=== PATIENT | female | born 1985 | race Caucasian/White ===

== ENCOUNTER 2017-10-22 06:32 | Inpatient (IN) | payer OTHER, SELFPAY ==
[~2017-10-22 06:32] MED LIST: Sodium Chloride 0.9% 10 ML Syringe FLUSH PRN; Sodium Chloride 0.9% 2.5 ML Syringe FLUSH PRN; ceFAZolin 2 GM in Premix Bag 1 BAG IV ONE
[2017-10-22] MEDS: Lactated Ringers 1,000 ML IV SCH ×3 (06:40→23:50)
--- NOTE | 2017-10-22 07:00 | PCM.PREANE ---
Preanesthetic Assessment - Anesthesia/Transfusion/Family Hx Anesthesia History: Prior Anesthesia Without Reaction Family History of Anesthesia Reaction: No Transfusion History: No Prior Transfusion(s) Intubation History: Unknown - Review of Systems General: No Symptoms Pulmonary: No Symptoms Cardiovascular: No Symptoms Gastrointestinal: Abdominal Pain Neurological: No Symptoms Other: Reports: None - Physical Assessment O2 Sat by Pulse Oximetry: 98 Respiratory Rate: 16 Vital Signs: Last Vital Signs Temp 36.5 C 10/22/17 06:45 Pulse 84 10/22/17 06:45 Resp 16 10/22/17 06:45 BP 127/64 10/22/17 06:45 Pulse Ox 98 10/22/17 06:45 Height: 1.68 m Weight: 101.151 kg ASA Class: 2 Mental Status: Alert & Oriented x3 Airway Class: Mallampati = 2 Dentition: Reports: Normal Dentition Thyro-Mental Finger Breadths: 3 Mouth Opening Finger Breadths: 3 ROM/Head Extension: Full Lungs: Clear to Auscultation, Normal Respiratory Effort Cardiovascular: Regular Rate, Regular Rhythm - Allergies Allergies/Adverse Reactions: Allergies Allergy/AdvReac Type Severity Reaction Status Date / Time pertussis vaccine,adsorbed Allergy Seizure Verified 10/16/17 10:44 [Pertussis Vaccine,Adsorbed] venom-honey bee Allergy Anaphylactic Verified 10/16/17 10:44 [bee venom (honey bee)] Shock - Blood Blood Available: No - Anesthesia Plan Pre-Op Medication Ordered: None - Acknowledgements Anesthesia Type Planned: General Anesthesia Pt an Appropriate Candidate for the Planned Anesthesia: Yes Alternatives and Risks of Anesthesia Discussed w Pt/Guardian: Yes Pt/Guardian Understands and Agrees with Anesthesia Plan: Yes PreAnesthesia Questionnaire HEENT History: Reports: Other (See Below) Other HEENT History: wears glasses Cardiovascular History: Reports: Other (See Below) (borderline cholesterol) Respiratory History: Reports: Other (See Below) Other Respiratory History: sports induced asthma in highschool Gastrointestinal History: Reports: Cholelithiasis Genitourinary History: Reports: None GRAPHIC DESIGN INTERN History: Reports: , Spontaneous Musculoskeletal History: Reports: None Neurological History: Reports: None Psychiatric History: Reports: None Endocrine/Metabolic History: Reports: Obesity/BMI 30+ Hematologic History: Reports: None Immunologic History: Reports: None Oncologic (Cancer) History: Reports: None Dermatologic History: Reports: Other (See Below) Other Dermatologic History: folliculitis - Past Surgical History Head Surgeries/Procedures: Reports: None Female Surgical History: Reports: D&C, LEEP - SUBSTANCE USE Smoking Status *Q: Former Smoker Second Hand Smoke Exposure: No Days Per Week of Alcohol Use: 0 Recreational Drug Use History: No - HOME MEDS Home Medications: Home Meds Acetaminophen [Tylenol Extra Strength] 1 - 2 tab PO ASDIRECTED PRN 10/16/17 [ History] Clotrimazole/Betamethasone Dip [Lotrisone Cream] 1 applic TOP ASDIRECTED [History] EPINEPHrine [Epipen 2-Sascha] 1 injection SUBCUT ASDIRECTED PRN 10/16/17 [History] Ibuprofen 3 tab PO ASDIRECTED PRN 10/16/17 [History] Omeprazole 20 mg PO DAILY PRN 10/16/17 [History] - CURRENT (IN HOUSE) MEDS Current Meds: Current Medications Lactated Ringer's (Ringers, Lactated) 1,000 mls @ 125 mls/hr IV ASDIRECTED STEVEN Last Admin: 10/22/17 06:40 Dose: 125 mls/hr Sodium Chloride (Saline Flush) 10 ml FLUSH ASDIRECTED PRN PRN Reason: Keep Vein Open Sodium Chloride (Saline Flush) 2.5 ml FLUSH ASDIRECTED PRN PRN Reason: Keep Vein Open Discontinued Medications Cefazolin Sodium/Dextrose 2 gm (/ Premix) 50 mls @ 100 mls/hr IV ONETIME ONE Stop: 10/21/17 17:06
[2017-10-22] MEDS ORDERED: Scopolamine 1.5 MG Transdermal Patch TRDERM PRN (07:01)
[2017-10-22] MEDS ORDERED: Ondansetron 4 MG/2 ML SDV ONE (07:04)
[2017-10-22] MEDS ORDERED: fentaNYL 100 MCG/2 ML SDV ONE ×4 (07:04→09:29)
[2017-10-22] MEDS ORDERED: Propofol 200 MG/20 ML SDV ONE (07:04)
[2017-10-22] MEDS ORDERED: Midazolam 1 MG/ML 2 ML SDV ONE (07:04)
[2017-10-22] MEDS ORDERED: Dexamethasone 4 MG/ML 5 ML MDV ONE (07:04)
[2017-10-22] MEDS ORDERED: Succinylcholine/Normal Saline 200 MG/10 ML Syringe ONE (07:07)
[2017-10-22] MEDS ORDERED: Rocuronium 10 MG/ML 10 ML Syringe ONE (07:07)
[2017-10-22] MEDS ORDERED: Neostigmine Methylsulfate 1 MG/ML 5 ML Syringe ONE (07:08)
[2017-10-22] MEDS ORDERED: Glycopyrrolate 0.2 MG/ML SDV ONE ×2 (07:08→08:49)
[2017-10-22] MEDS ORDERED: ceFAZolin/Dextrose,Iso-Osmotic 2 GM/50 ML Duplex Bag IV ONE (07:17)
[2017-10-22] MEDS ORDERED: Bupivacaine 0.5% 30 ML SDV ONE ×2 (07:28→09:36)
[2017-10-22] MEDS ORDERED: fentaNYL 100 MCG/2 ML SDV IVPUSH PRN (07:50)
[2017-10-22] MEDS ORDERED: ePHEDrine 50 MG/ML SDV ONE (08:44)
[2017-10-22] MEDS ORDERED: Phenylephrine/Normal Saline 100 MCG/ML 10 ML Syringe ONE (08:46)
[2017-10-22] MEDS ORDERED: Sodium Chloride 0.9% 20 ML ONE (10:12)
[2017-10-22] MEDS ORDERED: HYDROmorphone 2 MG/ML SDV ONE (10:12)
[2017-10-22] MEDS ORDERED: Ondansetron 4 MG/2 ML SDV IVPUSH PRN (10:58)
[2017-10-22] MEDS ORDERED: Acetaminophen 325 MG Tab PO PRN (10:58)
[2017-10-22] MEDS ORDERED: Promethazine 25 MG/ML SDV IM PRN (10:58)
[2017-10-22] MEDS ORDERED: HYDROmorphone/Normal Saline 6 MG/30 ML PCA Vial IV PRN (11:01)
--- NOTE | 2017-10-22 11:04 | PCM.OPNOTE ---
- General Post-Op/Procedure Note Date of Surgery/Procedure: 10/22/17 Operative Procedure(s): Laparoscopic converted to open cholecystectomy Findings: Severely inflamed gallbladder full of small stones Pre Op Diagnosis: Cholelithiasis Post-Op Diagnosis: Severe cholecystitis Anesthesia Technique: General ET Tube Primary Surgeon: Penelope Dangelo Pathology: Gallbladder Fluid Replacement, Intraop: 2,100 Output, Urine Amount: 100 EBL in mLs: 300 Surgical Drain/Tube Type: Juan Drain Condition: Good
[2017-10-22] MEDS: Cyclobenzaprine 5 MG Tab PO SCH ×2 (13:36→21:06)
--- NOTE | 2017-10-22 14:24 | PCM.SURGPN ---
- General Info Date of Service: 10/22/17 Date of Surgery/Procedure: 10/22/17 POD#: 0 Functional Status: Reports: Pain Controlled, Tolerating Diet - Review of Systems General: Reports: No Symptoms Pulmonary: Reports: No Symptoms Cardiovascular: Reports: No Symptoms Gastrointestinal: Reports: Abdominal Pain (along incision and mainly with movement ) - Patient Data Vitals - Most Recent: Last Vital Signs Temp 36.6 C 10/22/17 10:56 Pulse 98 10/22/17 11:55 Resp 21 H 10/22/17 11:55 BP 118/62 10/22/17 11:55 Pulse Ox 94 L 10/22/17 11:55 Weight - Most Recent: 103.963 kg I&O - Last 24 Hours: Intake & Output 10/21/17 10/22/17 10/22/17 22:59 06:59 14:59 Intake Total 4800 Output Total 300 Balance 4500 Lab Results Last 24 Hrs: Laboratory Results - last 24 hr 10/22/17 Range/Units 07:00 Urine HCG, Qual NEGATIVE (NEGATIVE) Med Orders - Current: Current Medications Acetaminophen (Tylenol) 650 mg PO Q6H PRN PRN Reason: Pain (mild 1-3) Cyclobenzaprine HCl (Flexeril) 5 mg PO BID [facility] Last Admin: 10/22/17 13:36 Dose: 5 mg Docusate Sodium (Colace) 100 mg PO BID PRN PRN Reason: Constipation Hydromorphone HCl (Dilaudid Harvesting Supervisor 6 Mg In Ns 30 Ml) 0 mg IV ASDIRECTED PRN; Protocol PRN Reason: Abdominal Pain Last Admin: 10/22/17 12:11 Dose: 6 mg Lactated Ringer's (Ringers, Lactated) 1,000 mls @ 125 mls/hr IV ASDIRECTED STEVEN Last Admin: 10/22/17 06:40 Dose: 125 mls/hr Ondansetron HCl (Zofran) 4 mg IVPUSH Q6H PRN PRN Reason: Nausea/Vomiting Promethazine HCl (Phenergan) 25 mg IM Q6H PRN PRN Reason: Nausea Scopolamine (Transderm-Scop) 1.5 mg TRDERM Q72H PRN PRN Reason: Nausea Last Admin: 10/22/17 07:13 Dose: 1.5 mg Sodium Chloride (Saline Flush) 10 ml FLUSH ASDIRECTED PRN PRN Reason: Keep Vein Open Sodium Chloride (Saline Flush) 2.5 ml FLUSH ASDIRECTED PRN PRN Reason: Keep Vein Open Discontinued Medications Bupivacaine HCl (Marcaine 0.5%) Confirm Administered Dose 30 ml .ROUTE .STK-MED ONE Stop: 10/22/17 07:29 Bupivacaine HCl (Marcaine 0.5%) Confirm Administered Dose 120 ml .ROUTE .STK- MED ONE Stop: 10/22/17 09:37 Cefazolin Sodium/Dextrose (Ancef) Confirm Administered Dose 2 gm IV .STK-MED ONE Stop: 10/22/17 07:18 Last Admin: 10/22/17 13:37 Dose: Not Given Dexamethasone (Dexamethasone) Confirm Administered Dose 20 mg .ROUTE .STK-MED ONE Stop: 10/22/17 07:05 Ephedrine Sulfate (Ephedrine Sulfate) Confirm Administered Dose 50 mg .ROUTE .STK-MED ONE Stop: 10/22/17 08:45 Fentanyl (Sublimaze) Confirm Administered Dose 100 mcg .ROUTE .STK-MED ONE Stop: 10/22/17 07:05 Fentanyl (Sublimaze) 50 mcg IVPUSH Q5M PRN PRN Reason: Pain (moderate 4-6) Stop: 10/22/17 12:00 Last Admin: 10/22/17 11:30 Dose: 50 mcg Fentanyl (Sublimaze) Confirm Administered Dose 100 mcg .ROUTE .STK-MED ONE Stop: 10/22/17 08:23 Fentanyl (Sublimaze) Confirm Administered Dose 100 mcg .ROUTE .STK-MED ONE Stop: 10/22/17 09:30 Fentanyl (Sublimaze) Confirm Administered Dose 100 mcg .ROUTE .STK-MED ONE Stop: 10/22/17 09:30 Glycopyrrolate (Robinul) Confirm Administered Dose 0.4 mg .ROUTE .STK-MED ONE Stop: 10/22/17 07:09 Glycopyrrolate (Robinul) Confirm Administered Dose 0.2 mg .ROUTE .STK-MED ONE Stop: 10/22/17 08:50 Hydromorphone HCl (Dilaudid) Confirm Administered Dose 2 mg .ROUTE .STK-MED ONE Stop: 10/22/17 10:13 Cefazolin Sodium/Dextrose 2 gm (/ Premix) 50 mls @ 100 mls/hr IV ONETIME ONE Stop: 10/21/17 17:06 Last Admin: 10/22/17 13:37 Dose: Not Given Sodium Chloride (Normal Saline) Confirm Administered Dose 20 mls @ as directed .ROUTE .STK-MED ONE Stop: 10/22/17 10:13 Lidocaine HCl (Xylocaine-Mpf 1%) Confirm Administered Dose 5 ml .ROUTE .STK-MED ONE Stop: 10/22/17 07:05 Midazolam HCl (Versed 1 Mg/Ml) Confirm Administered Dose 2 mg .ROUTE .STK-MED ONE Stop: 10/22/17 07:05 Neostigmine Methylsulfate (Neostigmine) Confirm Administered Dose 5 mg .ROUTE .STK-MED ONE Stop: 10/22/17 07:09 Ondansetron HCl (Zofran) Confirm Administered Dose 4 mg .ROUTE .STK-MED ONE Stop: 10/22/17 07:05 Phenylephrine HCl (Phenylephrine In Ns 100 Mcg/Ml) Confirm Administered Dose 1 mg .ROUTE .STK-MED ONE Stop: 10/22/17 08:47 Propofol (Diprivan 20 Ml) Confirm Administered Dose 200 mg .ROUTE .STK-MED ONE Stop: 10/22/17 07:05 Rocuronium [place] (Zemuron) Confirm Administered Dose 100 mg .ROUTE .STK-MED ONE Stop: 10/22/17 07:08 Succinylcholine Chloride (Succinylcholine In Ns Pf) Confirm Administered Dose 200 mg .ROUTE .STK-MED ONE Stop: 10/22/17 07:08 - Exam Wound/Incisions: Healing Well, Drainage (sanguinous drainage at the william- umbilical site otherwise other dressings are dry ) General: Alert, Oriented HEENT: Pupils Equal, Pupils Reactive Neck: Supple Lungs: Normal Respiratory Effort Cardiovascular: Regular Rate GI/Abdominal Exam: Soft, Non-Tender, No Distention, No Mass, Other (Drain with small amount of sanguinous drainage ) Skin: Warm, Dry, Intact Neurological: No New Focal Deficit Psy/Mental Status: Alert, Normal Affect, Normal Mood - Problem List & Annotations (1) Cholelithiasis SNOMED Code(s): 209347023 Code(s): K80.20 - CALCULUS OF GALLBLADDER W/O CHOLECYSTITIS W/O OBSTRUCTION Status: Acute Current Visit: Yes - Problem List Review Problem List Initiated/Reviewed/Updated: Yes - My Orders Last 24 Hours: Active Orders 24 hr Category Date Time Status Patient Status [ADT] Routine ADT 10/21/17 16:37 Active Antiembolic Devices [RC] PER UNIT ROUTINE Care 10/21/17 16:39 Active Intake and Output [RC] QSHIFT Care 10/22/17 10:59 Active Notify Provider Vital Signs [RC] PRN Care 10/22/17 10:59 Active Oxygen Therapy [RC] PRN Care 10/22/17 10:58 Active RT Incentive Spirometry [RC] ASDIRECTED Care 10/22/17 10:58 Active Ready for Discharge [RC] PER UNIT ROUTINE Care 10/22/17 07:56 Inactive Up ad Isabel [RC] ASDIRECTED Care 10/22/17 10:58 Active Verify Patient Consent Obtain [RC] ASDIRECTED Care 10/21/17 16:37 Active Vital Signs [RC] PER UNIT ROUTINE Care 10/22/17 10:58 Active Clear Liquid Diet [DIET] Diet 10/22/17 Lunch Active CBC W/O DIFF,HEMOGRAM [HEME] AM Lab 10/23/17 05:11 Ordered COMPREHENSIVE METABOLIC PN,CMP [CHEM] AM Lab 10/23/17 05:11 Ordered Acetaminophen [Tylenol] Med 10/22/17 10:58 Active 650 mg PO Q6H PRN Cyclobenzaprine [Flexeril] Med 10/22/17 11:15 Active 5 mg PO BID Docusate Sodium [Colace] Med 10/23/17 10:58 Active 100 mg PO BID PRN HYDROmorphone/Normal Saline [Dilaudid SPOT CHECKER 6 MG in NS 30 Med 10/22/17 11:01 Active ML] 0 mg IV ASDIRECTED PRN Lactated Ringers [Ringers, Lactated] 1,000 ml Med 10/21/17 16:45 Active IV ASDIRECTED Ondansetron [Zofran] Med 10/22/17 10:58 Active 4 mg IVPUSH Q6H PRN Promethazine [Phenergan] Med 10/22/17 10:58 Active 25 mg IM Q6H PRN Scopolamine [Transderm-Scop] Med 10/22/17 07:01 Active 1.5 mg TRDERM Q72H PRN Sodium Chloride 0.9% [Saline Flush] Med 10/21/17 16:37 Active 10 ml FLUSH ASDIRECTED PRN Sodium Chloride 0.9% [Saline Flush] Med 10/21/17 16:37 Active 2.5 ml FLUSH ASDIRECTED PRN Abdominal Binder [OM.PC] Per Unit Routine Oth 10/22/17 10:59 Ordered Peripheral IV Insertion Adult [OM.PC] Routine Oth 10/21/17 16:37 Ordered Sequential Compression Device [OM.PC] Routine Oth 10/21/17 16:37 Ordered Resuscitation Status Routine Resus Stat 10/21/17 16:37 Ordered Medication Orders Acetaminophen (Tylenol) 650 mg PO Q6H PRN PRN Reason: Pain (mild 1-3) Cyclobenzaprine HCl (Flexeril) 5 mg PO BID [facility] Last Admin: 10/22/17 13:36 Dose: 5 mg Docusate Sodium (Colace) 100 mg PO BID PRN PRN Reason: Constipation Hydromorphone HCl (Dilaudid Harvesting Supervisor 6 Mg In Ns 30 Ml) 0 mg IV ASDIRECTED PRN; Protocol PRN Reason: Abdominal Pain Last Admin: 10/22/17 12:11 Dose: 6 mg Lactated Ringer's (Ringers, Lactated) 1,000 mls @ 125 mls/hr IV ASDIRECTED STEVEN Last Admin: 10/22/17 06:40 Dose: 125 mls/hr Ondansetron HCl (Zofran) 4 mg IVPUSH Q6H PRN PRN Reason: Nausea/Vomiting Promethazine HCl (Phenergan) 25 mg IM Q6H PRN PRN Reason: Nausea Scopolamine (Transderm-Scop) 1.5 mg TRDERM Q72H PRN PRN Reason: Nausea Last Admin: 10/22/17 07:13 Dose: 1.5 mg Sodium Chloride (Saline Flush) 10 ml FLUSH ASDIRECTED PRN PRN Reason: Keep Vein Open Sodium Chloride (Saline Flush) 2.5 ml FLUSH ASDIRECTED PRN PRN Reason: Keep Vein Open - Plan Plan (Free Text/Narrative):: -Pain: Dilaudid SPOT CHECKER. Schedule flexeril -VSS -Diet: Clear liquids tonight. Start bowel regiment tomorrow -UOP adequate. Keep barker in for tonight. -Drain output normal. Will remove tomorrow if scant. -Anticipate 2-3 day stay in hospital
--- NOTE | 2017-10-22 16:59 | OR ---
SURGEON: GEO IBARRA MD DATE OF PROCEDURE: 10/22/2017 PREOPERATIVE DIAGNOSIS: Symptomatic cholelithiasis. POSTOPERATIVE DIAGNOSIS: Severe cholecystitis with cholelithiasis PROCEDURE PERFORMED: Laparoscopic converted to open cholecystectomy. FIRE DISPATCHER: Wyatt Clarke M.D. ANESTHESIA: General endotracheal anesthesia. FLUIDS: 2100 mL crystalloid. ESTIMATED BLOOD LOSS: 300 mL. URINE OUTPUT: 50 mL. FINDINGS: Severely inflamed gallbladder that was tense and full of gallstones. Patient had short cystic duct. COMPLICATIONS: None. INDICATIONS: The patient is a 32-year-old female, who recently presented to the ER with complaint of right upper quadrant pain. All of her labs were normal and ultrasound showed cholelithiasis with no evidence of acute cholecystitis. The patient saw me in clinic and we discussed the need for a cholecystectomy. We discussed laparoscopic and open approaches. I explained to the patient that should I be unable to perform this laparoscopically, we will convert to open. We discussed the expected perioperative course for each, as well as the risks including bleeding, infection, or damage to surrounding structures. The patient verbalized understanding and wishes to proceed. PROCEDURE IN DETAIL: The patient was brought into the OR and placed on the OR table in supine position. A time-out was completed verifying the patient's name, age, date of , allergies, and procedure to be performed. General endotracheal anesthesia was induced. The left arm was tucked to the patient's side and a Manning catheter placed. The abdomen was prepped and draped in usual standard fashion. I anesthetized the infraumbilical fold with 0.5% Marcaine plain. A periumbilical incision was made using a 15 blade. Cautery was used to dissect down to the level of the fascia. The fascia was elevated with Jackie's and incised sharply with the Metzenbaum scissors. I then dissected down to the peritoneum and elevated this with two Esme clamps. I incised sharply with the Metzenbaum scissors. Entry into the abdomen was noted. 0 Vicryl sutures were placed on either side of the fascia. I then placed a 12-mm Eulalio trocar into the abdomen. The abdomen was insufflated to 13 mmHg. I then inserted a 5 mm, 30 degree scope and inspected the area underneath my initial incision. No damage to surrounding structures was noted. The patient was placed in reverse Trendelenburg position and airplaned slightly to the left. Three trocars were then placed under direct visualization in the following locations, one in the epigastric area, one in the right flank, and one two fingerbreadths below the right subcostal margin in the midclavicular line. I attempted to grasp the dome of the gallbladder with an atraumatic grasper, but was unable to do so due to the gallbladder being tense and filled with gallstones. I placed an aspiration needle through the dome of the gallbladder to try and aspirate any bile in the gallbladder in order to be able to better manipulate it. Unfortunately, only about 5 mL of bilious appearing fluid were obtained. I was able to get a small amount of purchase on the dome of the gallbladder with my right lateral flank port and elevated upwards. The gallbladder appeared acutely and chronically inflamed with a thickened gallbladder wall. The area along the infundibulum was caked in preperitoneal fat making it extremely difficult for me to identify the cystic duct and artery. I attempted to bluntly dissect away some of this fat, but was unable to do so successfully. I was having difficulty keeping a grasp on the gallbladder wall and got into bleeding. Given my inability to safely perform this laparoscopically, the decision was made to convert to open. I called in my partner, Dr. Wyatt Clarke to assist in the case. I used a 15 blade to make a right subcostal incision. Cautery was used to dissect down through the layers of the abdominal wall until I entered the abdomen. Retractors were put in place to expose the gallbladder. The gallbladder was thickened and inflamed making it difficult to see the infundibulum even when it was opened. Dr. Wyatt Clarke and I decided to proceed in a dome down fashion. Using a Metzenbaum scissors, I was able to create a window at the top of the gallbladder between the gallbladder and liver bed. Blunt dissection was used to take the gallbladder down the level of the infundibulum. The gallbladder was tightly adhered to the gallbladder fossa causing small tears along the liver bed during this dissection. Once we get down to the level of the infundibulum, the right angle was used to dissect through the inflamed and thickened tissue. This was sharply dissected using a Metzenbaum scissors and all bleeding was controlled with a clip biofuels product development manager. We were able to then identify a very short cystic duct as it inserted on the common bile duct. The cystic duct was tied off with 2-0 Vicryl sutures, and a 10 mm clip was applied across it as well. The gallbladder was then incised and passed off the field. The cystic artery was noted to be proximal to this, this was dissected free and doubly clipped and ligated. Surgicel and Endo Avitene were then placed in the gallbladder bed and pressure held for 2 minutes. After this, we reinspected the operative field and appeared hemostatic. A 19-[place] Juan drain was then placed in the gallbladder fossa and brought out through the right lateral flank port site. The drain tubing was secured with a 2-0 silk suture. Prior to placing the Avitene, we did irrigate the abdomen with 500 mL of normal saline. The abdomen was then closed. The peritoneum was closed with a running 0 Vicryl suture. The abdominal fascia was closed with interrupted 0 Ethibond sutures. A running 3-0 Vicryl suture was used to close the subcutaneous fat layer and before closing the wound, an ON-Q pump was placed overlying the fascia. The skin was then closed with skin trena. The infraumbilical incision site was closed with 0 Vicryl sutures in the fascia layer and trena in the skin. Sterile dressings were applied. The patient was taken to the PACU in stable condition. BERLIN REIS /[id number]
[2017-10-23 05:48] LABS: CHLORIDE,CL 108 mmol/L (98-110); SODIUM,NA 141 mmol/L (136-146)
[2017-10-23] MEDS ORDERED: Ketorolac 10 MG Tab PO PRN (07:04)
[2017-10-23] MEDS ORDERED: HYDROmorphone 1 MG/ML Syringe IVPUSH PRN (07:11)
--- NOTE | 2017-10-23 07:16 | PCM.SURGPN ---
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 VSS overnight. Nausea with clear liquids. UOP adequate. Drain output minimal. Afebrile. ) - Review of Systems General: Reports: No Symptoms Pulmonary: Reports: No Symptoms Cardiovascular: Reports: No Symptoms Gastrointestinal: Reports: Abdominal Pain (with movement), Nausea - Patient Data Vitals - Most Recent: Last Vital Signs Temp 36.9 C 10/22/17 18:15 Pulse 98 10/22/17 18:15 Resp 18 10/22/17 18:15 BP 120/82 10/22/17 18:15 Pulse Ox 94 L 10/22/17 18:15 Weight - Most Recent: 103.963 kg I&O - Last 24 Hours: Intake & Output 10/22/17 10/23/17 10/23/17 22:59 06:59 14:59 Intake Total 1373 1646 Output Total 285 1560 Balance 1088 86 Lab Results Last 24 Hrs: Laboratory Results - last 24 hr 10/22/17 10/23/17 10/23/17 Range/Units 07:00 04:55 04:55 WBC 11.79 H (4.0-11.0) K/uL RBC 3.87 L (4.30-5.90) M/uL Hgb 11.3 L (12.0-16.0) g/dL Hct 34.3 L (36.0-46.0) % MCV 88.6 (80.0-98.0) fL MCH 29.2 (27.0-32.0) pg MCHC 32.9 (31.0-37.0) g/dL RDW Std Deviation 47.3 (28.0-62.0) fl RDW Coeff of Rusty 15 (11.0-15.0) % Plt Count 199 (150-400) K/uL MPV 9.90 (7.40-12.00) fL Nucleated RBC % 0.0 /100WBC Nucleated RBCs # 0 K/uL Sodium 141 (136-146) mmol/L Potassium 4.6 (3.5-5.1) mmol/L Chloride 108 (98-110) mmol/L Carbon Dioxide 25 (21-31) mmol/L BUN 7 (6.0-23.0) mg/dL Creatinine 0.6 (0.6-1.5) mg/dL Est Cr Clr Drug Dosing 126.01 mL/min Estimated GFR (MDRD) > 60.0 ml/min Glucose 100 (60-110) mg/dL Calcium 9.1 (8.8-10.8) mg/dL Total Bilirubin 0.5 (0.1-1.5) mg/dL AST 57 H (5-40) IU/L ALT 64 H (8-54) IU/L Alkaline Phosphatase 53 (40-150) Total Protein 5.9 L (6.0-8.0) g/dL Albumin 3.7 (3.5-5.0) g/dL Globulin 2.2 (2.0-3.5) g/dL Albumin/Globulin Ratio 1.7 (1.3-2.8) Urine HCG, Qual NEGATIVE (NEGATIVE) Med Orders - Current: Current Medications Acetaminophen (Tylenol) 650 mg PO Q6H PRN PRN Reason: Pain (mild 1-3) Cyclobenzaprine HCl (Flexeril) 5 mg PO BID [facility] Last Admin: 10/22/17 21:06 Dose: 5 mg Docusate Sodium (Colace) 100 mg PO BID PRN PRN Reason: Constipation Hydromorphone HCl (Dilaudid) 0.5 mg IVPUSH Q1H PRN PRN Reason: Abdominal Pain Lactated Ringer's (Ringers, Lactated) 1,000 mls @ 125 mls/hr IV ASDIRECTED [facility] Last Admin: 10/22/17 23:50 Dose: 125 mls/hr Ketorolac Tromethamine (Toradol) 10 mg PO Q6H PRN PRN Reason: Abdominal Pain Stop: 10/28/17 07:05 Ondansetron HCl (Zofran) 4 mg IVPUSH Q6H PRN PRN Reason: Nausea/Vomiting Last Admin: 10/22/17 17:11 Dose: 4 mg Oxycodone/Acetaminophen (Percocet 325-5 Mg) 2 tab PO Q4H PRN PRN Reason: Abdominal Pain Promethazine HCl (Phenergan) 25 mg IM Q6H PRN PRN Reason: Nausea Scopolamine (Transderm-Scop) 1.5 mg TRDERM Q72H PRN PRN Reason: Nausea Last Admin: 10/22/17 07:13 Dose: 1.5 mg Sodium Chloride (Saline Flush) 10 ml FLUSH ASDIRECTED PRN PRN Reason: Keep Vein Open Sodium Chloride (Saline Flush) 2.5 ml FLUSH ASDIRECTED PRN PRN Reason: Keep Vein Open Discontinued Medications Bupivacaine HCl (Marcaine 0.5%) Confirm Administered Dose 30 ml .ROUTE .STK-MED ONE Stop: 10/22/17 07:29 Bupivacaine HCl (Marcaine 0.5%) Confirm Administered Dose 120 ml .ROUTE .STK- MED ONE Stop: 10/22/17 09:37 Cefazolin Sodium/Dextrose (Ancef) Confirm Administered Dose 2 gm IV .STK-MED ONE Stop: 10/22/17 07:18 Last Admin: 10/22/17 13:37 Dose: Not Given Dexamethasone (Dexamethasone) Confirm Administered Dose 20 mg .ROUTE .STK-MED ONE Stop: 10/22/17 07:05 Ephedrine Sulfate (Ephedrine Sulfate) Confirm Administered Dose 50 mg .ROUTE .STK-MED ONE Stop: 10/22/17 08:45 Fentanyl (Sublimaze) Confirm Administered Dose 100 mcg .ROUTE .STK-MED ONE Stop: 10/22/17 07:05 Fentanyl (Sublimaze) 50 mcg IVPUSH Q5M PRN PRN Reason: Pain (moderate 4-6) Stop: 10/22/17 12:00 Last Admin: 10/22/17 11:30 Dose: 50 mcg Fentanyl (Sublimaze) Confirm Administered Dose 100 mcg .ROUTE .STK-MED ONE Stop: 10/22/17 08:23 Fentanyl (Sublimaze) Confirm Administered Dose 100 mcg .ROUTE .STK-MED ONE Stop: 10/22/17 09:30 Fentanyl (Sublimaze) Confirm Administered Dose 100 mcg .ROUTE .STK-MED ONE Stop: 10/22/17 09:30 Glycopyrrolate (Robinul) Confirm Administered Dose 0.4 mg .ROUTE .STK-MED ONE Stop: 10/22/17 07:09 Glycopyrrolate (Robinul) Confirm Administered Dose 0.2 mg .ROUTE .STK-MED ONE Stop: 10/22/17 08:50 Hydromorphone HCl (Dilaudid) Confirm Administered Dose 2 mg .ROUTE .STK-MED ONE Stop: 10/22/17 10:13 Hydromorphone HCl (Dilaudid Tree Surgeon Helper 6 Mg In Ns 30 Ml) 0 mg IV ASDIRECTED PRN; Protocol PRN Reason: Abdominal Pain Last Admin: 10/22/17 12:11 Dose: 6 mg Cefazolin Sodium/Dextrose 2 gm (/ Premix) 50 mls @ 100 mls/hr IV ONETIME ONE Stop: 10/21/17 17:06 Last Admin: 10/22/17 13:37 Dose: Not Given Sodium Chloride (Normal Saline) Confirm Administered Dose 20 mls @ as directed .ROUTE .STK-MED ONE Stop: 10/22/17 10:13 Lidocaine HCl (Xylocaine-Mpf 1%) Confirm Administered Dose 5 ml .ROUTE .STK-MED ONE Stop: 10/22/17 07:05 Midazolam HCl (Versed 1 Mg/Ml) Confirm Administered Dose 2 mg .ROUTE .STK-MED ONE Stop: 10/22/17 07:05 Neostigmine Methylsulfate (Neostigmine) Confirm Administered Dose 5 mg .ROUTE .STK-MED ONE Stop: 10/22/17 07:09 Ondansetron HCl (Zofran) Confirm Administered Dose 4 mg .ROUTE .STK-MED ONE Stop: 10/22/17 07:05 Phenylephrine HCl (Phenylephrine In Ns 100 Mcg/Ml) Confirm Administered Dose 1 mg .ROUTE .STK-MED ONE Stop: 10/22/17 08:47 Propofol (Diprivan 20 Ml) Confirm Administered Dose 200 mg .ROUTE .STK-MED ONE Stop: 10/22/17 07:05 Rocuronium [place] (Zemuron) Confirm Administered Dose 100 mg .ROUTE .STK-MED ONE Stop: 10/22/17 07:08 Succinylcholine Chloride (Succinylcholine In Ns Pf) Confirm Administered Dose 200 mg .ROUTE .STK-MED ONE Stop: 10/22/17 07:08 - Exam Wound/Incisions: Healing Well, Dressing Dry and Intact (over open incision), Drainage (over infraumbilical incision) General: Alert, Oriented Lungs: Normal Respiratory Effort Cardiovascular: Regular Rhythm GI/Abdominal Exam: Soft, Non-Tender, No Distention, No Mass - Problem List & Annotations (1) Cholelithiasis SNOMED Code(s): 046064394 Code(s): K80.20 - CALCULUS OF GALLBLADDER W/O CHOLECYSTITIS W/O OBSTRUCTION Status: Acute Current Visit: Yes - Problem List Review Problem List Initiated/Reviewed/Updated: Yes - My Orders Last 24 Hours: Active Orders 24 hr Category Date Time Status Notify Provider Vital Signs [RC] PRN Care 10/22/17 10:59 Active Oxygen Therapy [RC] PRN Care 10/22/17 10:58 Active RT Incentive Spirometry [RC] ASDIRECTED Care 10/22/17 10:58 Active Ready for Discharge [RC] PER UNIT ROUTINE Care 10/22/17 07:56 Inactive Remove Barker Catheter [Urinary Catheter Removal] [RC] Care 10/23/17 07:02 Ordered Per Unit Routine Up ad Isabel [RC] ASDIRECTED Care 10/22/17 10:58 Active Vital Signs [RC] PER UNIT ROUTINE Care 10/22/17 10:58 Active Regular Diet [DIET] Diet 10/23/17 Lunch Ordered Acetaminophen [Tylenol] Med 10/22/17 10:58 Active 650 mg PO Q6H PRN Acetaminophen/oxyCODONE [Percocet 325-5 MG] Med 10/23/17 07:02 Ordered 2 tab PO Q4H PRN Cyclobenzaprine [Flexeril] Med 10/22/17 11:15 Active 5 mg PO BID Docusate Sodium [Colace] Med 10/23/17 10:58 Active 100 mg PO BID PRN HYDROmorphone [Dilaudid] Med 10/23/17 07:11 Ordered 0.5 mg IVPUSH Q1H PRN Ketorolac [Toradol] Med 10/23/17 07:04 Ordered 10 mg PO Q6H PRN Ondansetron [Zofran] Med 10/22/17 10:58 Active 4 mg IVPUSH Q6H PRN Promethazine [Phenergan] Med 10/22/17 10:58 Active 25 mg IM Q6H PRN Scopolamine [Transderm-Scop] Med 10/22/17 07:01 Active 1.5 mg TRDERM Q72H PRN Abdominal Binder [OM.PC] Per Unit Routine Oth 10/22/17 10:59 Ordered Medication Orders Acetaminophen (Tylenol) 650 mg PO Q6H PRN PRN Reason: Pain (mild 1-3) Cyclobenzaprine HCl (Flexeril) 5 mg PO BID [facility] Last Admin: 10/22/17 21:06 Dose: 5 mg Admin: 10/22/17 13:36 Dose: 5 mg Docusate Sodium (Colace) 100 mg PO BID PRN PRN Reason: Constipation Hydromorphone HCl (Dilaudid) 0.5 mg IVPUSH Q1H PRN PRN Reason: Abdominal Pain Lactated Ringer's (Ringers, Lactated) 1,000 mls @ 125 mls/hr IV ASDIRECTED [facility] Last Admin: 10/22/17 23:50 Dose: 125 mls/hr Infusion: 10/22/17 23:50 Dose: 125 mls/hr Admin: 10/22/17 15:52 Dose: 125 mls/hr Infusion: 10/22/17 14:40 Dose: 125 mls/hr Admin: 10/22/17 06:40 Dose: 125 mls/hr Ketorolac Tromethamine (Toradol) 10 mg PO Q6H PRN PRN Reason: Abdominal Pain Stop: 10/28/17 07:05 Ondansetron HCl (Zofran) 4 mg IVPUSH Q6H PRN PRN Reason: Nausea/Vomiting Last Admin: 10/22/17 17:11 Dose: 4 mg Oxycodone/Acetaminophen (Percocet 325-5 Mg) 2 tab PO Q4H PRN PRN Reason: Abdominal Pain Promethazine HCl (Phenergan) 25 mg IM Q6H PRN PRN Reason: Nausea Scopolamine (Transderm-Scop) 1.5 mg TRDERM Q72H PRN PRN Reason: Nausea Last Admin: 10/22/17 07:13 Dose: 1.5 mg Sodium Chloride (Saline Flush) 10 ml FLUSH ASDIRECTED PRN PRN Reason: Keep Vein Open Sodium Chloride (Saline Flush) 2.5 ml FLUSH ASDIRECTED PRN PRN Reason: Keep Vein Open - Plan Plan (Free Text/Narrative):: 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 IV dilaudid PRN. PRN toradol and percocet. Scheduled flexeril Diet: Advance to regular. Explained that patient should eat small frequent meals Nausea: PRN zofran, phenergan, scopalamine patch Remove barker catheter. D/C IVF Bilirubin normal. Drain output 70ml. May remove by tomorrow if output remains low. Encourage OOB activity
--- NOTE | 2017-10-23 07:38 | PCM48HPAN ---
Post Anesthesia Note - EVALUATION WITHIN 48HRS OF ANESTHETIC Vital Signs in Normal Range: Yes Patient Participated in Evaluation: Yes Respiratory Function Stable: Yes Airway Patent: Yes Cardiovascular Function Stable: Yes Hydration Status Stable: Yes Pain Control Satisfactory: Yes Nausea and Vomiting Control Satisfactory: Yes Mental Status Recovered: Yes Resp Rate: 18
[2017-10-23] MEDS: Acetaminophen/oxyCODONE 325-5 MG Tab PO PRN ×4 (08:09→21:02)
[2017-10-23] MEDS: Cyclobenzaprine 5 MG Tab PO SCH ×2 (09:49→21:03)
[2017-10-23] MEDS ORDERED: Docusate Sodium 100 MG Cap PO PRN (10:58)
[2017-10-23] MEDS ORDERED: Acetaminophen/oxyCODONE 325-5 MG Tab PO ONE (19:41)
[2017-10-23] MEDS: Polyethylene Glycol 3350 Powder 17 GM Packet PO SCH (21:49)
[2017-10-24] MEDS: Acetaminophen/oxyCODONE 325-5 MG Tab PO PRN ×2 (06:14→13:30)
[2017-10-24] MEDS: Polyethylene Glycol 3350 Powder 17 GM Packet PO SCH (08:32)
[2017-10-24] MEDS: Cyclobenzaprine 5 MG Tab PO SCH (08:32)
--- NOTE | 2017-10-24 10:08 | PCM.SURGPN ---
- General Info Functional Status: Reports: Pain Controlled, Tolerating Diet, Ambulating, Urinating, Incentive Spirometry, Other (Not passing gas yet. Feels mildly bloated. ) - Review of Systems General: Reports: No Symptoms Pulmonary: Reports: No Symptoms Cardiovascular: Reports: No Symptoms Gastrointestinal: Reports: Constipation. Denies: Abdominal Pain, Decreased Appetite, Flatus, Nausea, Vomiting - Patient Data Vitals - Most Recent: Last Vital Signs Temp 37.2 C 10/24/17 04:00 Pulse 88 10/24/17 04:00 Resp 17 10/24/17 04:00 BP 112/63 10/24/17 04:00 Pulse Ox 95 10/24/17 04:00 Weight - Most Recent: 103.963 kg I&O - Last 24 Hours: Intake & Output 10/23/17 10/24/17 10/24/17 22:59 06:59 14:59 Intake Total 1420 1390 Output Total 3350 2900 Balance -1930 -1510 Med Orders - Current: Current Medications Acetaminophen (Tylenol) 650 mg PO Q6H PRN PRN Reason: Pain (mild 1-3) Cyclobenzaprine HCl (Flexeril) 5 mg PO BID [facility] Last Admin: 10/24/17 08:32 Dose: 5 mg Docusate Sodium (Colace) 100 mg PO BID PRN PRN Reason: Constipation Last Admin: 10/23/17 09:53 Dose: 100 mg Hydromorphone HCl (Dilaudid) 0.5 mg IVPUSH Q1H PRN PRN Reason: Abdominal Pain Ketorolac Tromethamine (Toradol) 10 mg PO Q6H PRN PRN Reason: Abdominal Pain Stop: 10/28/17 07:05 Ondansetron HCl (Zofran) 4 mg IVPUSH Q6H PRN PRN Reason: Nausea/Vomiting Last Admin: 10/22/17 17:11 Dose: 4 mg Oxycodone/Acetaminophen (Percocet 325-5 Mg) 2 tab PO Q4H PRN PRN Reason: Abdominal Pain Last Admin: 10/24/17 06:14 Dose: 2 tab Polyethylene Glycol (Miralax) 17 gm PO DAILY [facility] Last Admin: 10/24/17 08:32 Dose: 17 gm Promethazine HCl (Phenergan) 25 mg IM Q6H PRN PRN Reason: Nausea Scopolamine (Transderm-Scop) 1.5 mg TRDERM Q72H PRN PRN Reason: Nausea Last Admin: 10/22/17 07:13 Dose: 1.5 mg Sodium Chloride (Saline Flush) 10 ml FLUSH ASDIRECTED PRN PRN Reason: Keep Vein Open Sodium Chloride (Saline Flush) 2.5 ml FLUSH ASDIRECTED PRN PRN Reason: Keep Vein Open Discontinued Medications Bupivacaine HCl (Marcaine 0.5%) Confirm Administered Dose 30 ml .ROUTE .STK-MED ONE Stop: 10/22/17 07:29 Bupivacaine HCl (Marcaine 0.5%) Confirm Administered Dose 120 ml .ROUTE .STK- MED ONE Stop: 10/22/17 09:37 Cefazolin Sodium/Dextrose (Ancef) Confirm Administered Dose 2 gm IV .STK-MED ONE Stop: 10/22/17 07:18 Last Admin: 10/22/17 13:37 Dose: Not Given Dexamethasone (Dexamethasone) Confirm Administered Dose 20 mg .ROUTE .STK-MED ONE Stop: 10/22/17 07:05 Ephedrine Sulfate (Ephedrine Sulfate) Confirm Administered Dose 50 mg .ROUTE .STK-MED ONE Stop: 10/22/17 08:45 Fentanyl (Sublimaze) Confirm Administered Dose 100 mcg .ROUTE .STK-MED ONE Stop: 10/22/17 07:05 Fentanyl (Sublimaze) 50 mcg IVPUSH Q5M PRN PRN Reason: Pain (moderate 4-6) Stop: 10/22/17 12:00 Last Admin: 10/22/17 11:30 Dose: 50 mcg Fentanyl (Sublimaze) Confirm Administered Dose 100 mcg .ROUTE .STK-MED ONE Stop: 10/22/17 08:23 Fentanyl (Sublimaze) Confirm Administered Dose 100 mcg .ROUTE .STK-MED ONE Stop: 10/22/17 09:30 Fentanyl (Sublimaze) Confirm Administered Dose 100 mcg .ROUTE .STK-MED ONE Stop: 10/22/17 09:30 Glycopyrrolate (Robinul) Confirm Administered Dose 0.4 mg .ROUTE .STK-MED ONE Stop: 10/22/17 07:09 Glycopyrrolate (Robinul) Confirm Administered Dose 0.2 mg .ROUTE .STK-MED ONE Stop: 10/22/17 08:50 Hydromorphone HCl (Dilaudid) Confirm Administered Dose 2 mg .ROUTE .STK-MED ONE Stop: 10/22/17 10:13 Hydromorphone HCl (Dilaudid Plant Manager 6 Mg In Ns 30 Ml) 0 mg IV ASDIRECTED PRN; Protocol PRN Reason: Abdominal Pain Last Admin: 10/22/17 12:11 Dose: 6 mg Cefazolin Sodium/Dextrose 2 gm (/ Premix) 50 mls @ 100 mls/hr IV ONETIME ONE Stop: 10/21/17 17:06 Last Admin: 10/22/17 13:37 Dose: Not Given Lactated Ringer's (Ringers, Lactated) 1,000 mls @ 125 mls/hr IV ASDIRECTED [facility] Last Admin: 10/22/17 23:50 Dose: 125 mls/hr Sodium Chloride (Normal Saline) Confirm Administered Dose 20 mls @ as directed .ROUTE .STK-MED ONE Stop: 10/22/17 10:13 Lidocaine HCl (Xylocaine-Mpf 1%) Confirm Administered Dose 5 ml .ROUTE .STK-MED ONE Stop: 10/22/17 07:05 Midazolam HCl (Versed 1 Mg/Ml) Confirm Administered Dose 2 mg .ROUTE .STK-MED ONE Stop: 10/22/17 07:05 Neostigmine Methylsulfate (Neostigmine) Confirm Administered Dose 5 mg .ROUTE .STK-MED ONE Stop: 10/22/17 07:09 Ondansetron HCl (Zofran) Confirm Administered Dose 4 mg .ROUTE .STK-MED ONE Stop: 10/22/17 07:05 Phenylephrine HCl (Phenylephrine In Ns 100 Mcg/Ml) Confirm Administered Dose 1 mg .ROUTE .STK-MED ONE Stop: 10/22/17 08:47 Propofol (Diprivan 20 Ml) Confirm Administered Dose 200 mg .ROUTE .STK-MED ONE Stop: 10/22/17 07:05 Rocuronium [place] (Zemuron) Confirm Administered Dose 100 mg .ROUTE .STK-MED ONE Stop: 10/22/17 07:08 Succinylcholine Chloride (Succinylcholine In Ns Pf) Confirm Administered Dose 200 mg .ROUTE .STK-MED ONE Stop: 10/22/17 07:08 - Exam Wound/Incisions: Healing Well, Other (Dressings removed and wounds all appear healthy with no evidence of breakdown or infection ) General: Alert, Oriented Lungs: Normal Respiratory Effort Cardiovascular: Regular Rate GI/Abdominal Exam: Soft, Non-Tender, No Distention, No Mass - Problem List & Annotations (1) Cholelithiasis SNOMED Code(s): 889568199 Code(s): K80.20 - CALCULUS OF GALLBLADDER W/O CHOLECYSTITIS W/O OBSTRUCTION Status: Acute Current Visit: Yes - Problem List Review Problem List Initiated/Reviewed/Updated: Yes - My Orders Last 24 Hours: Active Orders 24 hr Category Date Time Status Communication Order [RC] DAILY Care 10/24/17 10:01 Ordered May Shower [RC] ASDIRECTED Care 10/24/17 10:03 Ordered Regular Diet [DIET] Diet 10/23/17 Lunch Active Docusate Sodium [Colace] Med 10/23/17 10:58 Active 100 mg PO BID PRN Polyethylene Glycol 3350 [MiraLAX] Med 10/23/17 21:30 Active 17 gm PO DAILY Medication Orders Acetaminophen (Tylenol) 650 mg PO Q6H PRN PRN Reason: Pain (mild 1-3) Cyclobenzaprine HCl (Flexeril) 5 mg PO BID [facility] Last Admin: 10/24/17 08:32 Dose: 5 mg Admin: 10/23/17 21:03 Dose: 5 mg Admin: 10/23/17 09:49 Dose: 5 mg Admin: 10/22/17 21:06 Dose: 5 mg Admin: 10/22/17 13:36 Dose: 5 mg Docusate Sodium (Colace) 100 mg PO BID PRN PRN Reason: Constipation Last Admin: 10/23/17 09:53 Dose: 100 mg Hydromorphone HCl (Dilaudid) 0.5 mg IVPUSH Q1H PRN PRN Reason: Abdominal Pain Ketorolac Tromethamine (Toradol) 10 mg PO Q6H PRN PRN Reason: Abdominal Pain Stop: 10/28/17 07:05 Ondansetron HCl (Zofran) 4 mg IVPUSH Q6H PRN PRN Reason: Nausea/Vomiting Last Admin: 10/22/17 17:11 Dose: 4 mg Oxycodone/Acetaminophen (Percocet 325-5 Mg) 2 tab PO Q4H PRN PRN Reason: Abdominal Pain Last Admin: 10/24/17 06:14 Dose: 2 tab Admin: 10/23/17 21:02 Dose: 2 tab Admin: 10/23/17 16:33 Dose: 2 tab Admin: 10/23/17 12:05 Dose: 2 tab Admin: 10/23/17 08:09 Dose: 2 tab Polyethylene Glycol (Miralax) 17 gm PO DAILY [facility] Last Admin: 10/24/17 08:32 Dose: 17 gm Admin: 10/23/17 21:49 Dose: 17 gm Promethazine HCl (Phenergan) 25 mg IM Q6H PRN PRN Reason: Nausea Scopolamine (Transderm-Scop) 1.5 mg TRDERM Q72H PRN PRN Reason: Nausea Last Admin: 10/22/17 07:13 Dose: 1.5 mg Sodium Chloride (Saline Flush) 10 ml FLUSH ASDIRECTED PRN PRN Reason: Keep Vein Open Sodium Chloride (Saline Flush) 2.5 ml FLUSH ASDIRECTED PRN PRN Reason: Keep Vein Open - Plan Plan (Free Text/Narrative):: Patient is tolerating a diet but has yet to pass gas. She feels mildly bloated. Encouraged her to keep walking as much as possible. Patient is taking miralax and dulcolax. Will hold off further bowel meds at this time. She can shower now that the bandages are removed. She is only using po pain medications. Once she is passing gas or has a BM she can d/c home. If none by tomorrow will be more aggressive with bowel regiment.
[2017-10-24] MEDS ORDERED: Sennosides 8.6 MG Tab PO SCH (10:15)
[2017-10-24 17:54] VITALS: BP 123/77
[2017-10-24] MEDS ORDERED: Acetaminophen/oxyCODONE 325-5 MG Tab PO ONE ×2 (19:40→20:14)
[2017-10-24] MEDS ORDERED: Acetaminophen/oxyCODONE 325-10 MG Tab PO ONE (20:06)
[2017-10-24] MEDS ORDERED: Polyethylene Glycol 3350 Powder 17 GM Packet PO SCH (21:00)
--- NOTE | 2017-10-26 08:15 | PCM.DCSUM1 ---
Discharge Summary - Hospital Course Free Text/Narrative:: Patient is a 32 year old female who underwent an elective cholecystectomy for symptomatic cholelithiasis. Upon entering the abdomen the patient was found to have acute on chronic cholecystitis with a short cystic duct. She was converted from laparoscopic to open. She was admited to the floor post-operatively for monitoring and pain control. Her labs the next day were normal. She was converted from IV to oral pain medications with good control of her discomfort. She was able to start ambulating on POD #2 and by POD#3 was up moving without assistance. She started passing gas on POD 33. She was toelrating a regular diet with no nausea. She was cleared to discharge home. - Discharge Data Discharge Date: 10/24/17 Discharge Disposition: Home, Self-Care 01 Condition: Good - Discharge Diagnosis/Problem(s) (1) Cholelithiasis SNOMED Code(s): 903801009 ICD Code: K80.20 - CALCULUS OF GALLBLADDER W/O CHOLECYSTITIS W/O OBSTRUCTION Status: Acute - Patient Summary/Data Operative Procedure(s) Performed: Laparoscopic converted to open cholecystectomy - Patient Instructions Diet: Regular Diet as Tolerated Activity: No Lifting Over 20 Pounds, Rest and Relax Today Driving: Do Not Drive Showering/Bathing: No Tub Bathing/Swimming Wound/Incision Care: Keep Operative Site/Wound Site Clean and Dry Notify Provider of: Fever, Increased Pain, Swelling and Redness, Drainage, Nausea and/or Vomiting - Discharge Plan Prescriptions/Med Rec: Cyclobenzaprine [Flexeril] 5 mg PO TID PRN #30 tab PRN Reason: Muscle Spasm Docusate Sodium [Dulcolax Stool Softener] 100 mg PO BID #14 capsule Polyethylene Glycol 3350 [MiraLAX] 17 gm PO DAILY #14 packet Home Medications: Home Meds Clotrimazole/Betamethasone Dip [Lotrisone Cream] 1 applic TOP ASDIRECTED [History] EPINEPHrine [Epipen 2-Sascha] 1 injection SUBCUT ASDIRECTED PRN 10/16/17 [History] Ibuprofen 3 tab PO ASDIRECTED PRN 10/16/17 [History] Omeprazole 20 mg PO DAILY PRN 10/16/17 [History] Cyclobenzaprine [Flexeril] 5 mg PO TID PRN #30 tab 10/24/17 [Rx] Docusate Sodium [Dulcolax Stool Softener] 100 mg PO BID #14 capsule 10/24/17 [Rx ] Polyethylene Glycol 3350 [MiraLAX] 17 gm PO DAILY #14 packet 10/24/17 [Rx] Patient Handouts: Cyclobenzaprine tablets, Open Cholecystectomy, Care After, Acetaminophen; Oxycodone tablets, Docusate capsules, Polyethylene Glycol powder Referrals: Penelope Dangelo MD [Physician] - 11/02/17 3:30 pm - General Info Functional Status: Reports: Pain Controlled, Tolerating Diet, Ambulating, Urinating - Review of Systems General: Reports: No Symptoms Pulmonary: Reports: No Symptoms Cardiovascular: Reports: No Symptoms Gastrointestinal: Reports: No Symptoms - Patient Data Vitals - Most Recent: Last Vital Signs Temp 36.1 C 10/24/17 16:00 Pulse 85 10/24/17 16:00 Resp 16 10/24/17 16:00 BP 123/77 10/24/17 16:00 Pulse Ox 97 10/24/17 16:00 Weight - Most Recent: 103.963 kg Med Orders - Current: Current Medications Discontinued Medications Acetaminophen (Tylenol) 650 mg PO Q6H PRN PRN Reason: Pain (mild 1-3) Bupivacaine HCl (Marcaine 0.5%) Confirm Administered Dose 30 ml .ROUTE .STK-MED ONE Stop: 10/22/17 07:29 Bupivacaine HCl (Marcaine 0.5%) Confirm Administered Dose 120 ml .ROUTE .STK- MED ONE Stop: 10/22/17 09:37 Cefazolin Sodium/Dextrose (Ancef) Confirm Administered Dose 2 gm IV .STK-MED ONE Stop: 10/22/17 07:18 Last Admin: 10/22/17 13:37 Dose: Not Given Cyclobenzaprine HCl (Flexeril) 5 mg PO BID STEVEN Last Admin: 10/24/17 08:32 Dose: 5 mg Dexamethasone (Dexamethasone) Confirm Administered Dose 20 mg .ROUTE .STK-MED ONE Stop: 10/22/17 07:05 Docusate Sodium (Colace) 100 mg PO BID PRN PRN Reason: Constipation Last Admin: 10/23/17 09:53 Dose: 100 mg Ephedrine Sulfate (Ephedrine Sulfate) Confirm Administered Dose 50 mg .ROUTE .STK-MED ONE Stop: 10/22/17 08:45 Fentanyl (Sublimaze) Confirm Administered Dose 100 mcg .ROUTE .STK-MED ONE Stop: 10/22/17 07:05 Fentanyl (Sublimaze) 50 mcg IVPUSH Q5M PRN PRN Reason: Pain (moderate 4-6) Stop: 10/22/17 12:00 Last Admin: 10/22/17 11:30 Dose: 50 mcg Fentanyl (Sublimaze) Confirm Administered Dose 100 mcg .ROUTE .STK-MED ONE Stop: 10/22/17 08:23 Fentanyl (Sublimaze) Confirm Administered Dose 100 mcg .ROUTE .STK-MED ONE Stop: 10/22/17 09:30 Fentanyl (Sublimaze) Confirm Administered Dose 100 mcg .ROUTE .STK-MED ONE Stop: 10/22/17 09:30 Glycopyrrolate (Robinul) Confirm Administered Dose 0.4 mg .ROUTE .STK-MED ONE Stop: 10/22/17 07:09 Glycopyrrolate (Robinul) Confirm Administered Dose 0.2 mg .ROUTE .STK-MED ONE Stop: 10/22/17 08:50 Hydromorphone HCl (Dilaudid) Confirm Administered Dose 2 mg .ROUTE .STK-MED ONE Stop: 10/22/17 10:13 Hydromorphone HCl (Dilaudid Stretcher And Drier 6 Mg In Ns 30 Ml) 0 mg IV ASDIRECTED PRN; Protocol PRN Reason: Abdominal Pain Last Admin: 10/22/17 12:11 Dose: 6 mg Hydromorphone HCl (Dilaudid) 0.5 mg IVPUSH Q1H PRN PRN Reason: Abdominal Pain Cefazolin Sodium/Dextrose 2 gm (/ Premix) 50 mls @ 100 mls/hr IV ONETIME ONE Stop: 10/21/17 17:06 Last Admin: 10/22/17 13:37 Dose: Not Given Lactated Ringer's (Ringers, Lactated) 1,000 mls @ 125 mls/hr IV ASDIRECTED STEVEN Last Admin: 10/22/17 23:50 Dose: 125 mls/hr Sodium Chloride (Normal Saline) Confirm Administered Dose 20 mls @ as directed .ROUTE .STK-MED ONE Stop: 10/22/17 10:13 Ketorolac Tromethamine (Toradol) 10 mg PO Q6H PRN PRN Reason: Abdominal Pain Stop: 10/28/17 07:05 Last Admin: 10/24/17 10:05 Dose: 10 mg Lidocaine HCl (Xylocaine-Mpf 1%) Confirm Administered Dose 5 ml .ROUTE .STK-MED ONE Stop: 10/22/17 07:05 Midazolam HCl (Versed 1 Mg/Ml) Confirm Administered Dose 2 mg .ROUTE .STK-MED ONE Stop: 10/22/17 07:05 Neostigmine Methylsulfate (Neostigmine) Confirm Administered Dose 5 mg .ROUTE .STK-MED ONE Stop: 10/22/17 07:09 Ondansetron HCl (Zofran) Confirm Administered Dose 4 mg .ROUTE .STK-MED ONE Stop: 10/22/17 07:05 Ondansetron HCl (Zofran) 4 mg IVPUSH Q6H PRN PRN Reason: Nausea/Vomiting Last Admin: 10/22/17 17:11 Dose: 4 mg Oxycodone/Acetaminophen (Percocet 325-5 Mg) 2 tab PO Q4H PRN PRN Reason: Abdominal Pain Last Admin: 10/24/17 13:30 Dose: 2 tab Oxycodone/Acetaminophen (Percocet 325-5 Mg) 1 tab PO ONETIME ONE Stop: 10/24/17 19:41 Last Admin: 10/24/17 20:41 Dose: Not Given Oxycodone/Acetaminophen (Percocet 325-5 Mg) 4 tab PO ONETIME ONE Stop: 10/23/17 19:42 Last Admin: 10/24/17 20:10 Dose: Not Given Oxycodone/Acetaminophen (Percocet 325-10 Mg) 4 tab PO ONETIME ONE Stop: 10/24/17 20:07 Last Admin: 10/24/17 20:15 Dose: Not Given Oxycodone/Acetaminophen (Percocet 325-5 Mg) 4 tab PO ONETIME ONE Stop: 10/24/17 20:15 Last Admin: 10/24/17 20:41 Dose: Not Given Phenylephrine HCl (Phenylephrine In Ns 100 Mcg/Ml) Confirm Administered Dose 1 mg .ROUTE .STK-MED ONE Stop: 10/22/17 08:47 Polyethylene Glycol (Miralax) 17 gm PO DAILY STEVEN Last Admin: 10/24/17 08:32 Dose: 17 gm Polyethylene Glycol (Miralax) 17 gm PO BID [facility] Promethazine HCl (Phenergan) 25 mg IM Q6H PRN PRN Reason: Nausea Propofol (Diprivan 20 Ml) Confirm Administered Dose 200 mg .ROUTE .STK-MED ONE Stop: 10/22/17 07:05 Rocuronium [place] (Zemuron) Confirm Administered Dose 100 mg .ROUTE .STK-MED ONE Stop: 10/22/17 07:08 Scopolamine (Transderm-Scop) 1.5 mg TRDERM Q72H PRN PRN Reason: Nausea Last Admin: 10/22/17 07:13 Dose: 1.5 mg Senna (Senna) 17.2 mg PO DAILY STEVEN Last Admin: 10/24/17 10:54 Dose: 17.2 mg Sodium Chloride (Saline Flush) 10 ml FLUSH ASDIRECTED PRN PRN Reason: Keep Vein Open Sodium Chloride (Saline Flush) 2.5 ml FLUSH ASDIRECTED PRN PRN Reason: Keep Vein Open Succinylcholine Chloride (Succinylcholine In Ns Pf) Confirm Administered Dose 200 mg .ROUTE .STK-MED ONE Stop: 10/22/17 07:08 - Exam General: Reports: Alert, Oriented, Cooperative HEENT: Reports: Pupils Equal, Pupils Reactive Lungs: Reports: Normal Respiratory Effort Cardiovascular: Reports: Regular Rate GI/Abdominal Exam: Soft, Non-Tender, No Distention, Pelvis Stable Back Exam: Reports: Normal Inspection, Full Range of Motion Extremities: Normal Inspection *Q Meaningful Use (DIS) - VTE *Q VTE Criteria *Q: - Stroke *Q Stroke Criteria *Q: - AMI *Q AMI Criteria *Q:
== END 2017-10-24 20:48 | disposition home or self-care (01) | DRG 416 ==
LOC: MW.SDS 06:32 → MW.MS 11:00
PROVIDERS: ADMIT Surgery; ATTEND Surgery
PROC: 0FT40ZZ Resection of Gallbladder, Open Approach (ICD-10-PCS; principal; 2017-10-22)
PROC: 0FJ44ZZ Inspection of Gallbladder, Percutaneous Endoscopic Approach (ICD-10-PCS; 2017-10-22)
DX: K80.20 Calculus of gallbladder without cholecystitis without obstruction (principal); Z88.7 Allergy status to serum and vaccine; Z79.899 Other long term (current) drug therapy
CPT/HCPCS: 36415; 80053; 81025; 85027; 88304; A9270-GY; J1100; J1170; J2250; J2405; J2704; J3010; J7120